=== PATIENT | female | born 1990 | race Caucasian/White ===

== ENCOUNTER 2024-01-12 21:19 | Emergency (ER) | payer OTHER ==
[2024-01-12] MEDS ORDERED: Acetaminophen 500 MG TAB ONE (21:38)
[2024-01-12] MEDS ORDERED: Ondansetron ODT 4 MG TAB ONE (21:38)
[2024-01-12] MEDS ORDERED: Ketorolac Tromethamine 30 MG (1 mL) VIAL ONE (21:38)
[2024-01-12] MEDS ORDERED: Lidocaine 1% (PF) 30 ML VIAL ONE (21:59)
[2024-01-12] MEDS ORDERED: Clindamycin 150 MG CAP ONE (23:09)
== END 2024-01-12 23:14 | disposition home or self-care (01) ==
LOC: NAV ERS 21:19
DX: L03.032 Cellulitis of left toe (principal); F17.290 Nicotine dependence, other tobacco product, uncomplicated; F90.9 Attention-deficit hyperactivity disorder, unspecified type; Z79.899 Other long term (current) drug therapy
CPT/HCPCS: 11730; 96372; 99283; J1885; Q0162